=== PATIENT | male | born 1975 | race Caucasian/White ===

== ENCOUNTER 2022-11-21 11:25 | Emergency (ER) | payer MEDICAID, SELFPAY ==
[2022-11-21 11:31] VITALS: BP 115/70; BP 124/77; PULSE 112; PULSE 129; RESP 18; TEMP 36.8; O2SAT 98; BMI 26.6
--- NOTE | 2022-11-21 11:38 | ED.OVERDOSE ---
HPI - Overdose General Chief Complaint: Overdose Stated Complaint: Overdose on heroin per EMS Time Seen by Provider: 11/21/22 11:29 Source: patient and EMS Mode of arrival: EMS Limitations: no limitations History of Present Illness HPI Narrative: 47 yo male with history of opioid use disoder presents to the ER via EMS after he was found unresponsive in his car. PD administered 2mg of narcan with no responsive. EMS arrived and gave another 8mg of intrananasal narcan and patient woke up. He states he injected earlier today when he was in his car. He states he does not use everyday. He states he does not have a problem. This is normal for him. He is not interested in speaking with anyone about detox, suboxone or methadone. MD complaint: accidental overdose Onset (ago): unknown Intent: unwilling to say How Overdose Was Discovered: called 911 Context: Accidental Overdose: wanted to get high Treatments Prior to Arrival: narcan Related Data Allergies Allergy/AdvReac Type Severity Reaction Status Date / Time No Known Allergies Allergy Verified 11/21/22 11:40 Review of Systems Review of Systems: Yes all other systems are reviewed and are negative [facility] Social History Social History Advance Directives: No Advance Directives Information Provided: Yes Physical Exam Vital Signs: Vital Signs: Last Vital Signs Temp 98.2 F 11/21/22 11:31 Pulse 112 H 11/21/22 11:31 Resp 18 11/21/22 11:31 BP 124/77 11/21/22 11:31 Pulse Ox 98 11/21/22 11:31 BMI result Body Mass Index 26.6 Appearance: Alert. Oriented X3. No acute distress. Head: normocephalic, atraumatic. Eyes: Pupils equal, round and reactive to light. ENT: Pharynx normal. No tonsillar swelling or exudate. Neck: Normal inspection. Neck supple. CVS: Normal heart rate and rhythm. Pulses normal. Respiratory: No respiratory distress. Breath sounds normal. Abdomen: Soft and nontender. +BS x4 Skin: Skin warm and dry. Normal skin color. Normal skin turgor. No rashes. Extremities: No lower extremity edema. No joint swelling. Neuro/psych: Oriented X 3. No motor deficit. No sensory deficit. CN II-XII intact. Normal speech and cognition. Steady gait Medical Decision Making Medical Decision Making MDM Narrative: 47-year-old male presents to the ER for evaluation after an opiate overdose. He required 10 mg of Narcan to improve his mentation. He was never hypoxic or cyanotic. He arrives to the ER, awake, alert, oriented. He walks from the EMS stretcher to the bed. She feels ?fine. ? 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 He states he hasf Narcan at home. After about half an hour in emergency department patient was adamant on leaving. He states he feels fine does not want stay. It was explained that the risk of for recurring alteration in mentation was high given the amount of Narcan he required. Advised patient was to stay in the emergency department for at least an hour for observation however he declined. He expressed understanding and agrees to the risks of possible upon leaving against medical advice. Patient signed paperwork AMA Differential Diagnosis Differential Diagnoses: The differential diagnosis associated with the presentation includes Opiate overdose, intentional overdose, accidental overdose, opioid use disorder, polysubstance use Independent Historian Clinical information obtained from an independent historian. History obtained from or confirmed by: EMS Prescription Management I considered prescription management with: Other (narcan) Chronic Conditions Patient?s care impacted by: Other (opioid use disorder) Critical Care Time Critical Care Time Critical Care Time: No Discharge Plan Discharge Clinical Impression: Drug overdose Patient Disposition: Left Against Medical Advice Instructions: Adult Overdose (ED) Additional Instructions: DO NOT USE DRUGS - THEY CAN KILL YOU Stand Alone Forms: Against Medical Advice Interventions: ED Discharge Assessment Last Done: 11/21/22 11:58 Discharge Date/Time: 11/21/22 11:59 Print Language: [place] Citizen
== END 2022-11-21 11:59 | disposition left against medical advice (07) ==
LOC: HO.ED 11:58
PROVIDERS: Emergency Provider Emergency Medicine
DX: T40.1X1A Poisoning by heroin, accidental (unintentional), initial encounter (principal); Y92.9 Unspecified place or not applicable
CPT/HCPCS: 99282

== ENCOUNTER 2023-04-08 08:32 | Emergency (ER) | payer MEDICAID, SELFPAY ==
[2023-04-08 08:36] VITALS: BP 150/90; PULSE 114; O2SAT 100
[2023-04-08 08:45] VITALS: BP 142/89; PULSE 110; RESP 18; TEMP 36.6; O2SAT 99
--- NOTE | 2023-04-08 08:48 | ED_ITS ---
HPI - General Adult General Stated complaint: OD,NARCAN W/GOOD EFFECT FROM BYSTANDER Source: patient and EMS Mode of arrival: EMS Limitations: no limitations History of Present Illness HPI narrative: 47-year-old male presents via EMS for opiate overdose, patient reports that he used a bag of heroin this morning, he reports he has an attic, he states he was sitting down when he was using, he fell asleep, was given Narcan by a bystander, he woke up he was told to come into the hospital he states he does not would be her. Denies SI, HI. Denies chest pain, shortness of breath, nausea, vomiting. Refusing everything at this time reports he would like to go home. At time of my examination patient well appearing, nontoxic. Related Data Allergies Allergy/AdvReac Type Severity Reaction Status Date / Time No Known Allergies Allergy Verified 11/21/22 11:40 Review of Systems Review of Systems: Constitutional : No Fever, No Chills ENT/Mouth : No sore throat, No Rhinorrhea Eyes: No Eye Pain, No Swelling, No Redness Cardiovascular : No Chest Pain, No SOB Respiratory : No Cough, No Sputum Gastrointestinal : No Nausea, No Vomiting, No Diarrhea, No abdominal Pain Genitourinary : No Dysuria, No Hematuria Musculoskeletal : No joint pain, No Myalgias, No Joint Swelling Skin : No Skin Lesions, No rash Neuro : No Weakness, No Numbness Psych : No Anxiety, No Depression, No SI/HI/AH/VH All other systems reviewed and are negative Yes all other systems are reviewed and are negative [facility] Past Medical History Attestation statement: The following information was validated with the patient. Source: old records reviewed and nursing notes reviewed Social History Social History Advance Directives: No Physical Exam ED Vital Signs: Vital Signs - 24 hr 04/08/23 08:45 Temperature 97.9 F Pulse Rate 110 H Respiratory Rate 18 Blood Pressure 142/89 H Pulse Oximetry 99 Oxygen Delivery Method Room Air vss Appearance: Alert.? Oriented X3.? No acute distress.? Head: Normocephalic, atraumatic, no step-offs or deformities Eyes: Pupils equal, round and reactive to light.? CVS: Normal heart rate and rhythm.? Pulses normal.? Respiratory: No respiratory distress.? Breath sounds normal.? Skin: Skin warm and dry.? Normal skin color.? Normal skin turgor.? Extremities: No lower extremity edema.? No calf ttp. 5/5 strength to bilateral upper and lower extremities Neuro: Oriented X 3.? No motor deficit.? No sensory deficit. CN 2-12 intact Medical Decision Making Medical Decision Making [facility] Narrative: [id number] 47-year-old male presents status post opiate overdose, reporting that he accidentally overdose, no SI or HI. Refusing treatment states his is here to pick him up. Physical examination benign Likely accidental opiate overdose. Unlikely SI attempt based off patient history and physical exam. I do not suspect electrolyte abnormalities or metabolic derangements. No signs of acute respiratory distress. Patient adamant that he is leaving and does not been hospital, explained to him that he could if he leaves, Narcan could wear out and he could going to respiratory distress, he verbalizes understanding. Agreeable to take Narcan home with him. I gave him Narcan. He is refusing a substance use disorder evaluation Educated patient on diagnosis and treatment plan, answered all question, patient verbalizes understanding. At this time patient will be discharged home, advised to return with new or worsening symptoms. Educated on worrisome signs and symptoms and when to return. Differential Diagnosis Differential Diagnoses: The differential diagnosis associated with the presentation includes Likely accidental opiate overdose. Unlikely SI attempt based off patient history and physical exam. I do not suspect electrolyte abnormalities or metabolic derangements. No signs of acute respiratory distress. Admission/Observation Consideration of admission/observation: Escalation of care including admission/observation considered No indication Core Measures AMI core measures followed: Yes Measure exclusions: not indicated Critical Care Time Critical Care Time Critical Care Time: No Discharge Plan Discharge Clinical Impression: Overdose, Left against medical advice Patient Disposition: Home, Self-Care Instructions: Against Medical Advice (ED), Adult Overdose (ED) Additional Instructions: Take your medications as prescribed. If you were prescribed antibiotics today, it is important that you take your medication to their entirety, do not skip any doses, do not finish them early. Follow-up with your primary care provider this week. Return to the emergency department with new or worsening symptoms. Such as fevers, chills, chest pain, shortness of breath, nausea, vomiting, dizziness, headache, vision changes, lethargy In case of emergency call 911 Referrals: ED Physician,Generic [Emergency Provider] - 2 days Stand Alone Forms: Against Medical Advice
[2023-04-08 08:49] VITALS: BMI 21.5
== END 2023-04-08 08:52 | disposition home or self-care (01) ==
PROVIDERS: Emergency Provider Emergency Medicine
DX: L50.0 Allergic urticaria (principal)
CPT/HCPCS: 99282